=== PATIENT | female | born 1955 | race Caucasian/White ===

== ENCOUNTER 2022-08-14 08:36 | Emergency (ER) | payer BC, MEDICARE ==
[~2022-08-14] VITALS: Ht 167.6 cm; Wt 54.4 kg
[2022-08-14 08:46] VITALS: BP 128/94
--- NOTE | 2022-08-14 09:15 | ER.PDOC ---
General Chief Complaint: Sore Throat Stated Complaint: POSSIBLE THRUSH TRAVEL OUT OF US: No Time seen by MD: 09:11 Source: patient Exam Limitations: no limitations History of Present Illness Initial Comments Possible oral thrush for 2 days. Patient is currently taking doxycycline for an upper respiratory infection and developed white patchy lesions on the oral tongue/buccal mucosa for the last 2 days. Severity: moderate Associated Symptoms: denies symptoms Allergies: Coded Allergies: Penicillins (Verified Allergy, Unknown, unk, 08/14/22) Past Medical History Medical History: asthma, hypertension Surgical History: appendectomy, tonsillectomy Family History Significant Family History: no pertinent family hx Social History Smoking: non-smoker Alcohol Use: occassionally Drug Use: none Review of Systems Constitutional: no symptoms reported EENTM: see HPI Respiratory: no symptoms reported Cardiovascular: no symptoms reported Gastrointestinal: no symptoms reported All Other Systems: Reviewed and Negative Physical Exam General Appearance: No Apparent Distress, WD/WN EENT: eyes nml inspection, nml ENT inspection, other (White pseudomembranous plaques in oral mucosa, tongue, hard palate and soft palates.) Neck: Non-Tender, Full Range of Motion, Supple Respiratory: chest non-tender, lungs clear, normal breath sounds, no respiratory distress, no accessory muscle use CVS: reg rate & rhythm, no murmur, no gallop, pulses nml, nml capillary refill Gastrointestinal: Normal Bowel Sounds, No Organomegaly, No Pulsatile Mass, Non Tender Back: Normal Inspection Extremities: Normal Range of Motion, Non-Tender 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 as Tested, No Motor/Sensory Deficits Skin: Normal Color Results/Orders Results/Orders Vital Signs Date Time Temp Pulse Resp B/P (MAP) Pulse Ox O2 Delivery O2 Flow Rate FiO2 08/14/22 08:46 98.0 93 18 95 08/14/22 08:46 98.0 93 18 128/94 (105) 95 Room Air* 0 21 08/14/22 08:46 98.0 93 18 ER DEPART Departure Time of Disposition: 09:13 Disposition: 01 HOME / SELF CARE / HOMELESS Impression: Primary Impression: Oral thrush Condition: Stable Referrals: EVERETTE LOZOYA (PCP) PRIMARY CARE PROVIDER Additional Instructions: Nystatin oral suspension Follow-up with your PCP next week Return to ED if worsening or concerns Duration or Time Spent with Pa: 10 min STEPHANIE ORTEGA MD Aug 14, 2022 09:15
== END 2022-08-14 09:18 | disposition home or self-care (01) ==
LOC: ER 08:36
DX: B37.0 Candidal stomatitis (principal); F10.20 Alcohol dependence, uncomplicated; I10 Essential (primary) hypertension; J45.909 Unspecified asthma, uncomplicated; Z88.0 Allergy status to penicillin; Z90.49 Acquired absence of other specified parts of digestive tract
CPT/HCPCS: 99283